=== PATIENT | female | born 1990 | race Caucasian/White ===

== ENCOUNTER → 2019-12-02 08:50 | Outpatient (CLI) | payer OTHER, SELFPAY ==
[2019-02-17 15:02] VITALS: BMI 26.9
[2019-12-02 10:33] LABS: Anion Gap 4 (5-15); BUN 6 mg/dL (7-18); BUN/Creat Ratio 8.3 RATIO (10-20); Calcium,Total 8.6 mg/dL (8.5-10.1); Chloride 108 mmol/L (98-107); Cholesterol 160 mg/dL (200); Creatinine, Serum 0.72 mg/dL (0.55-1.02); EST Glomerular Filtration Rate 102 mL/min (>60); Est Glom Filt Rate - Afr Amer 123 mL/min (>60); Glucose 86 mg/dL (74-106); High Density Lipoprotein 59 mg/dL; Potassium 3.9 mmol/L (3.5-5.1); Sodium Level 140 mmol/L (136-145); Thyroid Stim Hormone (TSH) 1.11 uIU/mL (0.358-3.74); Triglycerides 66 mg/dL; Very Low Density Lipoprotein 13 mg/dL (5-40)
== END ==
PROVIDERS: Family Medicine; PCP Family Medicine; Referring Provider Family Medicine; Visit Provider Family Medicine
DX: Z13.1 Encounter for screening for diabetes mellitus (principal); Z13.220 Encounter for screening for lipoid disorders; F41.9 Anxiety disorder, unspecified
CPT/HCPCS: 36415; 80048; 80061; 84443

== ENCOUNTER → 2020-01-18 | Outpatient (CLI) | payer OTHER, SELFPAY ==
[2019-02-17 15:02] VITALS: BMI 26.9
== END | disposition home or self-care (01) ==
PROVIDERS: PCP Family Medicine; Referring Provider Family Medicine; Visit Provider Family Medicine
DX: Z20.828 Contact with and (suspected) exposure to other viral communicable diseases (principal)
CPT/HCPCS: 87635; C9803; U0003

== ENCOUNTER → 2020-03-28 15:34 | Outpatient (CLI) | payer OTHER, SELFPAY ==
[2020-03-17 10:47] VITALS: BMI 27.3
== END ==
PROVIDERS: PCP Family Medicine; Referring Provider Nurse Practitioner Women's Health; Visit Provider Nurse Practitioner Women's Health
DX: N97.0 Female infertility associated with anovulation (principal)
CPT/HCPCS: 36415

== ENCOUNTER → 2020-04-15 16:28 | Outpatient (CLI) | payer OTHER, SELFPAY ==
[2020-03-17 10:47] VITALS: BMI 27.3
[2020-04-15 17:32] LABS: Progesterone Level 10.07 ng/mL (See Comment)
== END ==
PROVIDERS: PCP Family Medicine; Referring Provider Nurse Practitioner Women's Health; Visit Provider Nurse Practitioner Women's Health
DX: N97.0 Female infertility associated with anovulation (principal)
CPT/HCPCS: 36415; 84144

== ENCOUNTER → 2020-06-08 11:41 | Outpatient (CLI) | payer OTHER, SELFPAY ==
[2020-03-17 10:47] VITALS: BMI 27.3
--- NOTE | 2020-06-08 11:43 | RAD_ITS ---
STUDY: HYSTEROSALPINGOGRAM. REASON FOR EXAM: Female, 30 years old. Infertility FLUOROSCOPY TIME (if supplied): ( 35 seconds ) minutes/seconds. 3 images were obtained. TECHNIQUE: Hysterosalpingogram was performed by the aircraft engine installer. Imaging was provided. COMPARISON: None. FINDINGS: The uterus is unremarkable. There is patency of the left fallopian tube with free spill. RAD/Salpingogram IMPRESSION: Patency of the left fallopian tube with free spill. The right fallopian tube is not visualized. Electronically Signed: Sachin Chacon MD at 13:07 EST , Service support ,
--- NOTE | 2020-06-08 13:06 | PCM.OPRPT ---
Problem List (1) Infertility Status: Acute Report of Operation Date of Procedure: 06/08/20 Pre-Operative Diagnosis: Primary infertility Post-Operative Diagnosis: Same Surgery/Procedure Performed:: Hysterosalpingogram Description of Surgical Findings:: Spill noted from left fallopian tube. No spill on right. electronic engineering technician: None Type of Anesthesia:: None Description of Procedure: The patient was placed on the table in the lithotomy position. A sterile speculum was placed in the vagina until the cervix was adequately visualized. The cervix was cleansed with a Betadine solution. The HSG catheter was then passed through the cervix without difficulty and the balloon was inflated. Once the radiologist was present, dye was instilled through the HSG catheter and the above findings were noted. The procedure was deemed complete. All instruments removed from the vagina. - Complications None apparent - Admit VTE Documentation VTE Present on Admission: No VTE Mechan Device Prophylaxis: None Multi Select Codes - Urinary/Genital Urinary/Genital CPT Codes: 57301 HSG/SIS
== END ==
PROVIDERS: PCP Family Medicine; Referring Provider Obstetrics & Gynecology; Visit Provider Obstetrics & Gynecology
DX: N97.9 Female infertility, unspecified (principal)
CPT/HCPCS: 58340; 74740

== ENCOUNTER → 2020-08-09 17:18 | Outpatient (CLI) | payer OTHER, SELFPAY ==
[2020-07-06 13:52] VITALS: BMI 28.4
[2020-08-09 18:32] LABS: hCG Titer Quant., Serum 16464 mIU/mL (1-3)
== END ==
PROVIDERS: PCP Family Medicine; Referring Provider Obstetrics & Gynecology; Visit Provider Obstetrics & Gynecology
DX: N91.2 Amenorrhea, unspecified (principal)
CPT/HCPCS: 36415; 84702

== ENCOUNTER → 2020-08-11 15:10 | Outpatient (CLI) | payer OTHER, SELFPAY ==
[2020-07-06 13:52] VITALS: BMI 28.4
[2020-08-11 16:37] LABS: hCG Titer Quant., Serum 22702 mIU/mL (1-3)
== END ==
PROVIDERS: PCP Family Medicine; Referring Provider Obstetrics & Gynecology; Visit Provider Obstetrics & Gynecology
DX: N91.2 Amenorrhea, unspecified (principal)
CPT/HCPCS: 36415; 84702

== ENCOUNTER → 2020-08-12 07:59 | Outpatient (CLI) | payer OTHER, SELFPAY ==
[2020-07-06 13:52] VITALS: BMI 28.4
--- NOTE | 2020-08-12 08:01 | US_ITS ---
STUDY: FIRST TRIMESTER OBSTETRICAL ULTRASOUND REASON FOR EXAM: Female, 30 years old well being LMP: 06/29/2020. TECHNIQUE: Transvaginal TECHNICAL QUALITY: Adequate. PRIOR ULTRASOUND: None. FINDINGS: There is visualization of a single gestational sac in a normal intrauterine position. The mean sac diameter (MSD) measures 1.71 cm, indicating an estimated gestational age (EGA) of 6 weeks, 4 days. The gestational sac shape is within normal limits. There is a visualized yolk sac. The yolk sac measures 4.3 mm. The placenta is non-visualized. There is visualization of a live embryo. The crown-rump length (CRL) measures 3 mm, indicating an estimated gestational age (EGA) of 6 weeks, 0 days. There is demonstrated cardiac activity with a heart rate of 114 bpm. The estimated gestation age (EGA) by LMP is 6 weeks, 2 days. The estimated date of delivery (LEIDA) by LMP is 04/05/2021. The estimated gestation age (EGA) by US is 6 weeks, 2 days. The estimated date of delivery (LEIDA) by US is 04/05/2021. The uterus measures 8.7 cm x 6.4 cm x 4.8 cm. There is no demonstrated uterine fibroid. The cervix is closed. The right ovary measures 3.3 cm x 3.2 cm x 2 cm. There is a right ovarian cyst measuring 2.8 cm x 2.5 cm x 1.8 cm. There is no visualized right adnexal mass or complex lesion. The left ovary measures 1.8 cm x 2.7 cm x 2.3 cm. There is no left ovarian cyst. There is no visualized left adnexal mass or complex lesion. There is no fluid in the cul de sac. US/Transvaginal w/Preg US IMPRESSION: Single live uterine gestation with a mean gestational age of 6 weeks and 2 days. 2.8 cm x 2.5 cm x 1.8 cm right ovarian cyst. Electronically Signed: Sachin Chacon MD at 13:01 EDT , Service support ,
== END ==
PROVIDERS: PCP Family Medicine; Referring Provider Obstetrics & Gynecology; Visit Provider Obstetrics & Gynecology
DX: O36.80X0 Pregnancy with inconclusive fetal viability, not applicable or unspecified (principal); Z3A.00 Weeks of gestation of pregnancy not specified
CPT/HCPCS: 76817

== ENCOUNTER → 2020-09-12 15:49 | Outpatient (CLI) | payer OTHER, SELFPAY ==
[2020-09-12 14:47] VITALS: BMI 28.4
[2020-09-12 16:11] LABS: Absolute Lymphocyte Count 1.76 X10^3/uL (0.83-4.51); Basophil# 0.03 X10^3/uL; Basophil% 0.4 % (0-1); Eosinophil# 0.12 X10^3/uL; Eosinophils% 1.4 % (0-5); Hematocrit 36.4 % (37-47); Hemoglobin 12.3 g/dL (12.0-15.0); Lymphocyte # 1.76 X10^3/ul (0.83-4.51); Lymphocyte % 20.5 % (19-41); Mean Corp Hgb Conc 33.8 g/dL (32-36); Mean Corpuscular Hgb 30.1 pg (27.0-32.0); Mean Corpuscular Volume 89.2 fL (81-99); Mean Platelet Vol. 9.5 fl (6.2-12.0); Monocyte# 0.64 X10^3/uL; Monocyte% 7.5 % (0-10); NRBC Flagged by Analyzer 0 % (0-5); Neutrophil # 5.97 X10^3/uL (2.7-7.7); Neutrophil % 69.6 % (47-70); Platelet Count 266 K/mm3 (150-450); RBC Distribution Width CV 12.8 % (11.6-14.6); RBC Distribution Width SD 41.8 fl (35.1-43.9); Red Blood Count 4.08 M/mm3 (4.2-5.4); White Blood Count 8.6 K/mm3 (4.4-11.0)
[2020-09-12 16:53] LABS: NATERA MAILED SPECIMEN
[2020-09-12 18:16] LABS: Amphetamine Urine VISTA NEGATIVE (<1000 ng/mL); Barbiturate Urine VISTA NEGATIVE (< 200 ng/mL); Benzodiazepine Urine VISTA NEGATIVE (< 200 ng/mL); Cocaine Urine VISTA NEGATIVE (< 300 ng/mL); Ecstacy Urine VISTA NEGATIVE (< 500 ng/mL); Methadone Urine VISTA NEGATIVE (< 300 ng/mL); PCP Urine VISTA NEGATIVE (< 25 ng/mL); THC Urine VISTA NEGATIVE (< 50 ng/mL); Vista UDS pH Range 6
[2020-09-13 09:08] LABS: HIV - WCH Non-Reactive (Nonreactive); Hepatitis B Surface Antigen Non-Reactive (Nonreactive); Hepatitis C Antibody Non-Reactive (Nonreactive); Rubella IgG Reactive (Nonreactive); Syphilis Antibodies Non-reactive
[2020-09-15 03:07] LABS: Chlamydia By Nucleic Acid AMP Negative (Negative)
[2020-09-15 08:42] LABS: Gonococcus By Nucleic Acid AMP Negative (Negative)
== END ==
PROVIDERS: PCP Family Medicine; Referring Provider Obstetrics & Gynecology; Visit Provider Obstetrics & Gynecology
DX: Z34.81 Encounter for supervision of other normal pregnancy, first trimester (principal)
CPT/HCPCS: 36415; 80307; 85025; 86703; 86762; 86780; 86803; 86850; 86900; 86901; 87086; 87088; 87340; 87491; 87591

== ENCOUNTER → 2020-11-09 12:51 | Outpatient (CLI) | payer OTHER, SELFPAY ==
[2020-10-12 08:51] VITALS: BMI 28.4
[2020-11-09 13:18] VITALS: BP 110/65; PULSE 87; RESP 16; TEMP 36.3; O2SAT 98; BMI 29.5
[2020-11-09] MEDS: Dextrose 5%-Lactated Ringers 1,000 ML 999 ML IV (13:35)
[2020-11-09] MEDS: Ondansetron 4 MG/2 ML Vial IV (13:35)
[2020-11-09 14:47] VITALS: BP 109/63; PULSE 95; RESP 16; TEMP 36.6; O2SAT 100
[2020-11-09] MEDS: proMETHazine 25 MG/ML Syringe 12.5 MG IM (14:51)
== END ==
PROVIDERS: PCP Family Medicine; Referring Provider Nurse Practitioner Women's Health; Visit Provider Nurse Practitioner Women's Health
DX: E86.0 Dehydration (principal)
CPT/HCPCS: 96361; 96372; A4216; J2405

== ENCOUNTER 2020-11-13 13:18 | Emergency (ER) | payer OTHER, SELFPAY ==
[2020-11-11 14:31] VITALS: BMI 29.5
[2020-11-13 13:19] VITALS: BP 116/73; PULSE 96; RESP 16; TEMP 36.8; O2SAT 97; BMI 31.4
--- NOTE | 2020-11-13 13:34 | ED.VIS.FEGU ---
HPI HPI - Female History of Present Illness Chief Complaint: Vag Bld, Preg Informant: patient Pain Pain: Negative for Pelvic Pain Bleeding Issue: Positive for Vaginal bleeding; Negative for Passing clots and Passing tissue Onset: Weeks Context: Gradual Onset Timing: Intermittent Current Severity: Spotting Maximum Severity: Spotting Associated Symptoms Associated Symptoms: Negative for Dysuria, Frequency, Urgency, Hematuria and Missed Period Test: Positive Sexually: Positive for Active Control: No control P: 0 Ab: 0 Narrative Narrative: 30-year-old female G1, P0 Ab0 that is approximately 19 weeks . Due date is 04/05/2021. Patient is currently seeing Dr. Brewer as her DEMOLITIONIST. States she has had intermittent spotting throughout the . She has had an ultrasound showing a single live IUP and her blood type is O+. She is having no pain. No clots. And has not passed any tissue. She denies any urinary symptoms. Prior similar symptoms: Yes Recent Illness/Hospitalization: No PFSH PFSH no medical history Home Medications prenat.vits,michelle,[id number] 1 tab PO DAILY 08/30/20 [History Last Taken Unknown] Allergy/AdvReac Type Severity Reaction Status Date / Time No Known Allergies Allergy Verified 11/13/20 13:20 Family History Grandmother Diabetes Grandfather No problems noted. Aunt Diabetes Uncle Diabetes Father Hypercholesterolemia Surgical History [place] teeth extracted Social History adopted: No household members: spouse number of children: 0 current occupational status: employed current occupation: [employer] Coordinator of [employer] pets and animals: No Smoking Status: Never smoker alcohol intake: current alcohol intake frequency: holidays/special occasions only substance use type: does not use seatbelt use: always do you feel safe at home: Yes additional social history: Sadiq Minus at [employer] ROS ROS ED ROS Narrative Mild nausea early on the she has been doing well recently. Review of Systems ROS Unobtainable: Denies due to encephalopathy Constitutional Constitutional ED: Denies fever(s) Eyes Eyes: Denies change in vision ENT ENT ED: Denies ear pain or rhinorrhea Cardiovascular Cardiovascular: Denies chest pain Respiratory/Chest Respiratory/Chest: Denies cough or dyspnea Gastrointestinal Gastrointestinal: Reports nausea; Denies abdominal pain, constipation, diarrhea or vomiting Genitourinary Genitourinary ED: Denies dysuria Musculoskeletal Musculoskeletal: Denies myalgias Integumentary Denies rash Neurologic Neurologic: Denies headache(s) Psychiatric Psychiatric: Denies depression Endocrine Endocrinology: Denies polyuria Hematologic/Lymphatic Hematologic/Lymphatic: Denies easy bruising Allergic/Immunologic Allergic/Immunologic ED: Denies urticaria EXAM Physical Exam Narrative Exam Narrative: Well-appearing female no acute distress. Vital signs stable afebrile. HEENT, neck, heart, lung exam unremarkable. Abdomen soft nontender normal bowel sounds no peritoneal signs. Gravid uterus nontender. heart tones 144 per the nurse. Moving all 4 extremities. No edema. Neurologically awake alert no focal motor deficits. Const Vital Signs: 11/13/20 13:19 Temperature 98.3 F Temperature Source Temporal Pulse Rate 96 Respiratory Rate 16 Blood Pressure 116/73 Blood Pressure Mean 87 Pulse Ox 97 Oxygen Delivery Method Room Air Positive well nourished and well developed; Negative for obese, cachectic or contractures General Appearance ED: well developed; Negative for cachectic or contractures Nutritional Appearance: Negative for cachectic or obese HEENT Reports moist mucous membranes Negative for trauma or tenderness Eyes PERRL and EOMs intact bilaterally Neck no lymphadenopathy, supple and no JVD Thyroid: Negative for tender Chest Wall inspection of chest normal Resp normal respiratory effort and clear to auscultation bilaterally Cardio regular rate, regular rhythm, S1 normal heart sound, no murmurs and no JVD GI normal to inspection, nondistended, normoactive bowel sounds, soft to palpation, non-tender, non-distended and no masses GI Narrative: Gravid uterus, nontender consistent with dates. Auscultation: normoactive bowel sounds Palpation: Negative for tender, guarding or rigid Back/Spine no CVA tenderness Extremity normal to inspection and full ROM General Extremety ED: Negative for edema or tenderness General Extremity: Negative for edema Neuro oriented x3 Sensorium / Orientation: alert, oriented to person, oriented to place and oriented to time Motor Exam: strength 5/5 throughout Psych mental status grossly normal Skin no rashes or lesions noted MDM MDM MDM Narrative Medical decision making narrative: G1, P0 female 19 weeks . Vaginal spotting spotting off and on throughout the last several weeks. Prior single live IUP ultrasound. Blood type so positive. heart tones are 144 today. She will be discharged to home follow-up with her primary DEMOLITIONIST physician for threatened miscarriage. Discharge Plan Triage Chief Complaint: Vag Bld, Preg ED Provider: Tommy Mi Dx/Rx/DC Orders Clinical Impression: Vaginal bleeding in patient at less than 20 weeks gestation Instructions: ED Possible Miscarriage ... Prescriptions: No Action prenat.vits,michelle,[id number] Tablet 1 tab PO DAILY RF: 0 Primary Care Provider: Sadiq Brewer Referrals: Sadiq Brewer MD [Primary Care Provider] - As soon as possible Activity Restrictions/Additional Instructions: heart tones are fine. Follow-up with your DEMOLITIONIST tomorrow. Plenty of fluids and rest. No intercourse. No heavy lifting Disposition Disposition: Home, Self Care
== END 2020-11-13 14:02 | disposition home or self-care (01) ==
LOC: ED 14:00
PROVIDERS: Emergency Provider Emergency Medicine; PCP Family Medicine
DX: O20.9 Hemorrhage in early pregnancy, unspecified (principal); Z3A.19 19 weeks gestation of pregnancy
CPT/HCPCS: 99282

== ENCOUNTER → 2020-11-15 14:53 | Outpatient (CLI) | payer OTHER, SELFPAY ==
[2020-11-13 13:19] VITALS: BMI 31.4
[2020-11-15 14:39] VITALS: BMI 31.4
--- NOTE | 2020-11-15 14:56 | US_ITS ---
STUDY: SECOND AND THIRD TRIMESTER OBSTETRICAL ULTRASOUND - LIMITED REASON FOR EXAM: Female, 30 years old well being LMP: PRIOR ULTRASOUND: None. TECHNIQUE: Transabdominal and transvaginal TECHNICAL QUALITY: Adequate. FINDINGS: There is a single intrauterine fetus. The fetus is in a breech presentation. There is demonstrated cardiac activity with a heart rate of 143 bpm. There is a normal amniotic fluid volume. The largest amniotic fluid pocket measures 5.3 x 4.6 cm. The amniotic fluid index (NATALIYA) is 15.4 cm. The placenta is anterior and not low-lying There are Grade 0 placental changes. The cervix measures 3.2 cm in length. Age by LMP: 19 weeks, 6 days. LEIDA by LMP: 04/05/2021. age by prior US: 19 weeks, 6 days. LEIDA by prior US: 04/05/2021. IMPRESSION: Viable intrauterine gestation approximately 19-20 weeks gestational age with fetus currently in breech position. No significant abnormality Electronically Signed: Jimmy Bonilla MD at 16:25 EDT , Service support , STUDY: OBSTETRICAL ULTRASOUND REASON FOR EXAM: Female, 30 years old well being LMP: TECHNIQUE: Transvaginal TECHNICAL QUALITY: Adequate. PRIOR ULTRASOUND: None. FINDINGS: There is a single viable intrauterine gestation noted currently in breech position with heart rate of approximately 143 bpm. Placenta is anterior and not low-lying. Placenta grade was 0 There appears to be a very small retroplacental complex fluid collection possibly representing hematoma. Amniotic fluid index was 16.4 and the largest fluid pocket measures 5.3 x 4.6 cm age by prior ultrasound was 19 weeks 6 days with estimated date of delivery 04/05/2021. There is similar age utilizing menstrual dates US/OB Limited (No Biometrics) IMPRESSION: Viable intrauterine gestation approximately 19-20 weeks gestational age with fetus currently in breech position. . Findings suggestive of small retroplacental hematoma. Recommend clinical correlation and follow-up studies Electronically Signed: Jimmy Bonilla MD at 16:29 EDT , Service support ,
== END ==
PROVIDERS: PCP Family Medicine; Referring Provider Obstetrics & Gynecology; Visit Provider Obstetrics & Gynecology
DX: O20.9 Hemorrhage in early pregnancy, unspecified (principal)
CPT/HCPCS: 76815; 76817

== ENCOUNTER → 2020-12-09 12:34 | Outpatient (CLI) | payer OTHER, SELFPAY ==
[2020-11-13 13:19] VITALS: BMI 31.4
--- NOTE | 2020-12-09 12:35 | US_ITS ---
STUDY: SECOND AND THIRD TRIMESTER OBSTETRICAL ULTRASOUND - LIMITED REASON FOR EXAM: Female, 30 years old CERVICAL LENGTH ONLY LMP: PRIOR ULTRASOUND: 11/15/2020 TECHNIQUE: Transvaginal TECHNICAL QUALITY: Adequate. FINDINGS: There is a single intrauterine fetus. The fetus is in a breech presentation. The cervix measures 3.3 cm in length. US/Transvaginal w/Preg US IMPRESSION: Cervical length 3.3 cm. Electronically Signed: Alf Bear MD at 12:55 EDT Tel , Service support ,
== END ==
PROVIDERS: PCP Family Medicine; Referring Provider Obstetrics & Gynecology; Visit Provider Obstetrics & Gynecology
DX: O46.90 Antepartum hemorrhage, unspecified, unspecified trimester (principal); Z3A.00 Weeks of gestation of pregnancy not specified
CPT/HCPCS: 76817

== ENCOUNTER → 2020-12-23 12:06 | Outpatient (CLI) | payer OTHER, SELFPAY ==
--- NOTE | 2020-12-23 12:09 | US_ITS ---
STUDY: FIRST TRIMESTER OBSTETRICAL ULTRASOUND REASON FOR EXAM: Female, 30 years old CERVICAL LENGTH CHECK 24 W LMP: 06/29/2020. TECHNIQUE: Transvaginal TECHNICAL QUALITY: Adequate. PRIOR ULTRASOUND: None. FINDINGS: The cervical length measures 4.6 cm. heart rate measures 157 bpm. US/Transvaginal w/Preg US IMPRESSION: Cervical length measures 4.6 ounces. Electronically Signed: Sachin Chacon MD at 14:40 EDT , Service support ,
== END ==
PROVIDERS: PCP Family Medicine; Referring Provider Obstetrics & Gynecology; Visit Provider Obstetrics & Gynecology
DX: O46.90 Antepartum hemorrhage, unspecified, unspecified trimester (principal); Z3A.00 Weeks of gestation of pregnancy not specified
CPT/HCPCS: 76817

== ENCOUNTER → 2021-01-06 12:59 | Outpatient (CLI) | payer OTHER, SELFPAY ==
[2021-01-06 13:50] LABS: Absolute Neutrophil Count 6.4 X10^3/uL (2.0-7.7); Basophil# 0.02 X10^3/uL; Basophil% 0.2 % (0-1); Eosinophil# 0.11 X10^3/uL; Eosinophils% 1.3 % (0-5); Hematocrit 33.4 % (37-47); Hemoglobin 11.3 g/dL (12.0-15.0); Lymphocyte % 17.6 % (19-41); Mean Corp Hgb Conc 33.8 g/dL (32-36); Mean Corpuscular Hgb 30.6 pg (27.0-32.0); Mean Corpuscular Volume 90.5 fL (81-99); Mean Platelet Vol. 9.7 fl (6.2-12.0); Monocyte% 5.9 % (0-10); NRBC Flagged by Analyzer 0 % (0-5); Neutrophil # 6.36 X10^3/uL (2.7-7.7); Neutrophil % 74.6 % (47-70); Platelet Count 231 K/mm3 (150-450); RBC Distribution Width SD 42.8 fl (35.1-43.9); Red Blood Count 3.69 M/mm3 (4.2-5.4); White Blood Count 8.5 K/mm3 (4.4-11.0)
[2021-01-06 14:22] LABS: Glucose Challenge Gest 1H 50g 157 mg/dL (70-140)
== END ==
PROVIDERS: PCP Family Medicine; Referring Provider Obstetrics & Gynecology; Visit Provider Obstetrics & Gynecology
DX: Z34.01 Encounter for supervision of normal first pregnancy, first trimester (principal)
CPT/HCPCS: 36415; 82950; 85025

== ENCOUNTER → 2021-01-13 06:57 | Outpatient (CLI) | payer OTHER, SELFPAY ==
[2021-01-13 07:43] LABS: Glucose GTT-Gestation. Fasting 97 mg/dL (<105)
[2021-01-13 09:49] LABS: Glucose GTT-Gestational 1 Hr 185 mg/dL (<190)
[2021-01-13 10:42] LABS: Glucose GTT-Gestational 2 Hr 159 mg/dL (<165)
[2021-01-13 12:04] LABS: Glucose GTT-Gestational 3 Hr 81 L (<145)
== END ==
PROVIDERS: Referring Provider Obstetrics & Gynecology; Visit Provider Obstetrics & Gynecology
DX: Z13.1 Encounter for screening for diabetes mellitus (principal)
CPT/HCPCS: 36415; 82951; 82952

== ENCOUNTER 2021-01-24 15:44 | Outpatient (RCR) | payer OTHER, SELFPAY | END 2021-02-05 23:59 | LOC: DC 15:44 | PROVIDERS: Visit Provider Obstetrics & Gynecology | DX: O24.419 Gestational diabetes mellitus in pregnancy, unspecified control (principal); Z3A.00 Weeks of gestation of pregnancy not specified | CPT/HCPCS: 97802 ==

== ENCOUNTER 2021-02-09 15:05 | Outpatient (RCR) | payer OTHER, SELFPAY | END 2021-03-07 23:59 | LOC: DC 15:05 | PROVIDERS: Visit Provider Obstetrics & Gynecology | DX: O24.419 Gestational diabetes mellitus in pregnancy, unspecified control (principal); Z3A.00 Weeks of gestation of pregnancy not specified ==

== ENCOUNTER → 2021-03-10 13:19 | Outpatient (CLI) | payer OTHER, SELFPAY ==
--- NOTE | 2021-03-10 13:19 | US_ITS ---
STUDY: SECOND AND THIRD TRIMESTER OBSTETRICAL ULTRASOUND - LIMITED REASON FOR EXAM: Female, 31 years old 36 week growth LMP: 06/29/2020. PRIOR ULTRASOUND: Comparison is made with prior study dated 12/23/2020. TECHNIQUE: Transabdominal TECHNICAL QUALITY: Adequate. FINDINGS: There is a single intrauterine fetus. The fetus is in a cephalic presentation. There is demonstrated cardiac activity with a heart rate of 160 bpm. There is a normal amniotic fluid volume. The largest amniotic fluid pocket measures 7.1 cm. The amniotic fluid index (NATALIYA) is 17.8 cm. The placenta is fundal and anterior in location. There are Grade 1 placental changes. The cervix measures 3.8 cm in length. BIOMETRY: BPD: 9.14 cm: 37 weeks, 0 days HC: 32.75 cm: 37 weeks, 1 days AC: 31.4 cm: 35 weeks, 2 days FL: 6.8 cm: 35 weeks, 0 days Age by LMP: 36 weeks, 2 days. LEIDA by LMP: 04/05/2021. age by prior US: 36 weeks, 2 days. LEIDA by prior US: 04/05/2021. age by current US: 36 weeks, 1 days. LEIDA by current US: 04/06/2021. Estimated weight: 2744 grams, +/- 412 grams, 37 percentile. US/OB Limited With Biometrics IMPRESSION: Single live intrauterine gestation with a mean gestational age of 36 weeks and 1 day. The measurements obtained today fall within the normal expected range. Electronically Signed: Sachin Chacon MD at 12:45 EST , Service support ,
== END ==
PROVIDERS: Referring Provider Obstetrics & Gynecology; Visit Provider Obstetrics & Gynecology
DX: O46.90 Antepartum hemorrhage, unspecified, unspecified trimester (principal); O24.410 Gestational diabetes mellitus in pregnancy, diet controlled; Z3A.36 36 weeks gestation of pregnancy
CPT/HCPCS: 76816; 87081

== ENCOUNTER 2021-03-21 02:10 | Inpatient (IN) | payer OTHER, SELFPAY ==
[2021-03-21] VITALS (53 sets, daily range): BP systolic 90–139; BP diastolic 51–82; PULSE 61–93; RESP 15–18; TEMP 36–36.9; O2SAT 92–100; BMI 31.9
[2021-03-21 02:09] LABS: ROM Internal Control Test YES-OK TO RESULT pt. (Internal QC)
[2021-03-21 02:10] LABS: ROM Patient Test POSITIVE (Negative)
[2021-03-21] MEDS: Lactated Ringers 500 ML 999 ML IV ×2 (02:30→03:46)
[2021-03-21 02:36] LABS: Bedside Glucose 92 mg/dL (70-110)
[2021-03-21 02:38] LABS: Absolute Lymphocyte Count 1.38 X10^3/uL (0.83-4.51); Absolute Neutrophil Count 11.8 X10^3/uL (2.0-7.7); Basophil# 0.02 X10^3/uL; Basophil% 0.1 % (0-1); Eosinophil# 0.01 X10^3/uL; Eosinophils% 0.1 % (0-5); Hematocrit 36.8 % (37-47); Hemoglobin 12.6 g/dL (12.0-15.0); Lymphocyte # 1.38 X10^3/ul (0.83-4.51); Lymphocyte % 9.9 % (19-41); Mean Corp Hgb Conc 34.2 g/dL (32-36); Mean Corpuscular Hgb 30.7 pg (27.0-32.0); Mean Corpuscular Volume 89.5 fL (81-99); Mean Platelet Vol. 10.4 fl (6.2-12.0); Monocyte# 0.68 X10^3/uL; Monocyte% 4.9 % (0-10); NRBC Flagged by Analyzer 0 % (0-5); Neutrophil # 11.81 X10^3/uL (2.7-7.7); Neutrophil % 84.5 % (47-70); Platelet Count 230 K/mm3 (150-450); RBC Distribution Width CV 13.3 % (11.6-14.6); RBC Distribution Width SD 43.8 fl (35.1-43.9); Red Blood Count 4.11 M/mm3 (4.2-5.4)
[2021-03-21] MEDS: Lactated Ringers 1,000 ML 200 ML IV (03:01)
[2021-03-21] MEDS: fentaNYL-bupivacaine (epidural) 100 ML BAG EPIDURAL (03:37)
--- NOTE | 2021-03-21 05:09 | HP.PCM.OB_ITS ---
HPI - General General Date of Admission: 03/21/21 HPI Narrative ROSA ELENA BELTRÁN, is a 31 F who presents in active labor 4-5 cm ruptured clear fluid. She has had a complicated by gestational diabetes managed with Metformin. Maternal Data Information LEIDA Calculator Estimated Delivery Date Method Current WG Current Estimate 04/05/21 LMP (Certain) 37w 6d PFSH PFS Medical History (Updated 03/21/21 @ 05:[address] Brandi Ann MD) Anxiety Gestational diabetes Infertility Placental abnormality Home Medications prenat.vits,michelle,xzb-snez-cerhf 1 tab PO DAILY 08/30/20 [History Last Taken Unknown] blood-glucose meter #1 ea 01/13/21 [Rx Last Taken Unknown] ferrous sulfate 325 mg (65 mg iron) tablet 325 mg PO DAILY 01/17/21 [History Last Taken Unknown] blood sugar diagnostic #50 ea 01/25/21 [Rx Last Taken Unknown] lancets #100 ea 01/27/21 [Rx Last Taken Unknown] metformin 500 mg PO BID 03/21/21 [History Last Taken 03/20/21 17:45] Allergy/AdvReac Type Severity Reaction Status Date / Time No Known Allergies Allergy Verified 03/21/21 01:47 Family History Grandmother Diabetes Grandfather No problems noted. Aunt Diabetes Uncle Diabetes Father Hypercholesterolemia Surgical History [place] teeth extracted Social History adopted: No household members: spouse number of children: 0 current occupational status: employed current occupation: [employer] Coordinator of [employer] pets and animals: No Smoking Status: Former smoker alcohol intake: current alcohol intake frequency: holidays/special occasions only substance use type: does not use seatbelt use: always do you feel safe at home: Yes additional social history: Marcio Nearlyweds at [employer] History 1 Elective abortions Hx Para 0 Spontaneous abortions Hx # Term Pregnancies Ectopic pregnancies Hx # Pregnancies Multiple births # of living children Visit Details Expected Delivery Route/Plan plan IOL by 39 Labor Preferences- CB/BF classes: yes labor support person: marcio labor intervention preferences: [] pain management options preferred: epidural cut cord/dad catch: [] : [] PP control planned: [] discussed possible routes of delivery and associated risks: discussed possible delivery modalities and possible indications for each including R/B/A of , VAVD, and CS. questions answered. special requests: [] Plans covid status: positive in , vaccinated now flu vaccine: given tdap vaccine: given rhogam: na LARC form signed: declined movement and labor precautions reviewed. Problem list reviewed and updated with the most current plan of care details and appropriate orders placed. Relevant counseling for the gestational age provided. Continue routine care and follow up unless otherwise noted in visit notes/problem list details OB Flowsheet Initial Weight: 180 lb Date -?-?-?-?-?-?-?-?-?-?-?-?- EGA Weight BP Urine Prot -?-?-?-?-?-?-?-?-?-?-?-?- Glucose FHR FuHt Pres Dilation -?-?-?-?-?-?-?-?-?-?-?-?- Effaced St Visit Note 09/12/20 -?-?-?-?-?-?-?-?-?-?-?-?- 10w 5d 182 lb (+2 lb) 120/80 -?-?-?-?-?-?-?-?-?-?-?-?- 158 -?-?-?-?-?-?-?-?-?-?-?-?- GP - CRL consist ent with LMP 10/12/20 -?-?-?-?-?-?-?-?-?-?-?-?- 15w 0d 184 lb 4 oz (+4 lb 4 oz) 104/70 Negative -?-?-?-?-?-?-?-?-?-?-?-?- Negative 144 -?-?-?-?-?-?-?-?-?-?-?-?- GP - no cramping . Had 2 episodes of spotting but no bleeding currently. Eda uriel scan ordered. 11/11/20 -?-?-?-?-?-?-?-?-?-?-?-?- 19w 2d 190 lb (+10 lb) 100/80 Negative -?-?-?-?-?-?-?-?-?-?-?-?- Negative 140 -?-?-?-?-?-?-?-?-?-?-?-?- SM- no vb lof cr amping SM- still has occasional epi sodes of spotting, has anatomy us thruday, plan repeat CL 2 weeks after that 11/15/20 -?-?-?-?-?-?-?-?-?-?-?-?- 19w 6d -?-?-?-?-?-?-?-?-?-?-?-?- 147 0 -?-?-?-?-?-?-?-?-?-?-?-?- -work in for juliano maher. Cervix closed, everted and friable. Reassured. US later today 11/15/20 -?-?-?-?-?-?-?-?-?-?-?-?- 19w 6d 189 lb (+9 lb) 118/70 Negative -?-?-?-?-?-?-?-?-?-?-?-?- Negative -?-?-?-?-?-?-?-?-?-?-?-?- 12/09/20 -?-?-?-?-?-?-?-?-?-?-?-?- 23w 2d 192 lb 4 oz (+12 lb 4 oz) 102/74 Negative -?-?-?-?-?-?-?-?-?-?-?-?- Negative 145 23 -?-?-?-?-?-?-?-?-?-?-?-?- GP - no LOF, VB, DFM, ctx. FU CL done today - awaiting read but images reviewed and are normal 01/06/21 -?-?-?-?-?-?-?-?-?-?-?-?- 27w 2d 200 lb (+20 lb) Negative -?-?-?-?-?-?-?-?-?-?-?-?- Negative 140 27 -?-?-?-?-?-?-?-?-?-?-?-?- GP - no LOF, VB, DFM, ctx. Denies complaints. GCT and CBC done today- GCT pending 01/27/21 -?-?-?-?-?-?-?-?-?-?-?-?- 30w 2d 198 lb (+18 lb) 112/76 Negative -?-?-?-?-?-?-?-?-?-?-?-?- Negative 140 30 -?-?-?-?-?-?-?-?-?-?-?-?- SM- no vb lof go od fm no reuglar ctx discussed diabetes 02/10/21 -?-?-?-?-?-?-?-?-?-?-?-?- 32w 2d 201 lb (+21 lb) 116/80 -?-?-?-?-?-?-?-?-?-?-?-?- 140 32 -?-?-?-?-?-?-?-?-?-?-?-?- Sm- no vb lof go od fm no eruglar ctx BS controlled 02/24/21 -?-?-?-?-?-?-?-?-?-?-?-?- 34w 2d 201 lb 6 oz (+21 lb 6 oz) 112/72 Negative -?-?-?-?-?-?-?-?-?-?-?-?- Negative 145 34 Cephalic -?-?-?-?-?-?-?-?-?-?-?-?- SM- no vb lof go od fm no regular ctx 03/10/21 -?-?-?-?-?-?-?-?-?-?-?-?- 36w 2d 204 lb 6 oz (+24 lb 6 oz) 112/70 Negative -?-?-?-?-?-?-?-?-?-?-?-?- Negative 140 36 Cephalic 1 -?-?-?-?-?-?-?-?-?-?-?-?- SM- discussed st arted on metformin, will start extra testing 03/14/21 -?-?-?-?-?-?-?-?-?-?-?-?- 36w 6d Negative -?-?-?-?-?-?-?-?-?-?-?-?- 1000 g/dL 140 -?-?-?-?-?-?-?-?-?-?-?-?- MH NST only reac tive 03/17/21 -?-?-?-?-?-?-?-?-?-?-?-?- 37w 2d 201 lb (+21 lb) -?-?-?-?-?-?-?-?-?-?-?-?- 140 Cephalic 3 -?-?-?-?-?-?-?-?-?-?-?-?- 70 -2 SM- no vb lof good fm irregular ctx discussed IOL 39 pit 03/21/21 -?-?-?-?-?-?-?-?-?-?-?-?- 37w 6d 198 lb (+18 lb) 122/78 139/76 128/74 129/79 129/82 108/59 100/51 90/56 97/53 105/59 111/59 109/71 -?-?-?-?-?-?-?-?-?-?-?-?- -?-?-?-?-?-?-?-?-?-?-?-?- 03/21/21 -?-?-?-?-?-?-?-?-?-?-?-?- 37w 6d -?-?-?-?-?-?-?-?-?-?-?-?- -?-?-?-?-?-?-?-?-?-?-?-?- NST FHR Rate Baby A Baseline: 140 Variability:: Moderate Accelerations:: 15 x 15 Decelerations:: None NST Reactive:: Yes FHR Category:: Category I Uterine Activity:: q3-5 ROS Constitutional Constitutional: Reports systems reviewed and no addt'l complaints, except as documented ENT HEENT: Reports systems reviewed and no addt'l complaints, except as documented Cardiovascular Cardiovascular: Reports systems reviewed and no addt'l complaints, except as documented Respiratory/Chest Respiratory/Chest: Reports systems reviewed and no addt'l complaints, except as documented Gastrointestinal Gastrointestinal: Reports systems reviewed and no addt'l complaints, except as documented and nausea; Denies abdominal pain Genitourinary Genitourinary: Reports systems reviewed and no addt'l complaints, except as documented, contractions Details: present and frequency (regular ) and movement Details: present Musculoskeletal Musculoskeletal: Reports systems reviewed and no addt'l complaints, except as documented Integumentary Integumentary: Reports as per HPI Neurologic Neurologic: Reports systems reviewed and no addt'l complaints, except as documented Endocrine Endocrinology: Reports systems reviewed and no addt'l complaints, except as documented Vital Signs Vital Signs Vital Signs: 03/21/21 01:22 03/21/21 01:25 03/21/21 01:26 Temperature 96.8 F L Temperature Source Temporal Pulse Rate 71 Blood Pressure 122/78 H BP Systolic 122 BP Diastolic 78 Pulse Ox 98 03/21/21 02:28 03/21/21 03:12 03/21/21 03:17 Temperature Temperature Source Pulse Rate 80 70 76 Blood Pressure BP Systolic BP Diastolic Pulse Ox 99 100 99 03/21/21 03:19 03/21/21 03:22 03/21/21 03:24 Temperature Temperature Source Pulse Rate 71 78 72 Blood Pressure 139/76 H 128/74 H BP Systolic 139 128 BP Diastolic 76 74 Pulse Ox 100 03/21/21 03:27 03/21/21 03:28 03/21/21 03:32 Temperature Temperature Source Pulse Rate 77 73 82 Blood Pressure 129/79 H BP Systolic 129 BP Diastolic 79 Pulse Ox 100 99 03/21/21 03:34 03/21/21 03:37 03/21/21 03:39 Temperature Temperature Source Pulse Rate 77 71 69 Blood Pressure 129/82 H 108/59 L BP Systolic 129 108 BP Diastolic 82 59 Pulse Ox 99 03/21/21 03:40 03/21/21 03:42 03/21/21 03:44 Temperature 97.7 F L Temperature Source Pulse Rate 76 71 Blood Pressure 100/51 L BP Systolic 100 BP Diastolic 51 Pulse Ox 100 03/21/21 03:47 03/21/21 03:48 03/21/21 03:52 Temperature Temperature Source Pulse Rate 74 75 72 Blood Pressure 90/56 L BP Systolic 90 BP Diastolic 56 Pulse Ox 100 100 03/21/21 03:54 03/21/21 03:57 03/21/21 03:59 Temperature Temperature Source Pulse Rate 71 77 68 Blood Pressure 97/53 L 105/59 L BP Systolic 97 105 BP Diastolic 53 59 Pulse Ox 100 03/21/21 04:02 03/21/21 04:04 03/21/21 04:08 Temperature Temperature Source Pulse Rate 68 67 71 Blood Pressure 111/59 L BP Systolic 111 BP Diastolic 59 Pulse Ox 100 92 03/21/21 04:38 03/21/21 04:42 03/21/21 05:03 Temperature 97.5 F L Temperature Source Pulse Rate 71 77 68 Blood Pressure 109/71 BP Systolic 109 BP Diastolic 71 Pulse Ox 97 98 Weight Weight: 198 lb Body Mass Index (BMI) 31.9 Physical Exam Const alert, oriented x3 and healthy appearing Constitutional Narrative: uncomfortable with contractions HEENT normocephalic and moist oral mucous membranes Head and Scalp: atraumatic Neck full ROM, no lymphadenopathy, supple and thyroid normal General: trachea midline Thyroid: thyroid normal Lymph Lymphatic: no lymphadenopathy noted Chest inspection of chest normal Resp normal respiratory effort Cardio regular rate GI normal to inspection, nondistended, normoactive bowel sounds, soft to palpation and non-tender Inspection: gravid external exam normal Bimanual Exam - Vag & Uterus: uterus non-tender Manual OB Exam: estimated gestational size appropriate, presentation cephalic, dilated, effaced and station Extremity normal to inspection General Extremity: Negative for edema Skin no rashes or lesions noted Neuro deep tendon reflexes 2+ bilaterally Motor Exam: strength 5/5 throughout and clonus absent Psych mental status grossly normal Labs Labs Labs: Blood Type O POSITIVE Antibody Screen NEGATIVE Hct 36.8 % (37-47) L Hgb 12.6 g/dL (12.0-15.0) Obstetrics US Syphilis Total Ab Non-reactive Rubella IgG Antibody Reactive (Nonreactive) Hep Bs Antigen Non-Reactive (Nonreactive) Neisseria gonorrhoeae DNA (NIK) Negative (Negative) HIV 1&2 Antibody Non-Reactive (Nonreactive) Glucose 1 Hr 50 gm 157 mg/dL (70-140) H Miscellaneous Test Assessment & Plan (1) Anxiety: COMMENT: no meds (2) : QUALIFIERS: Weeks of gestation: 37 weeks Qualified Code(s): Z3A.37 - 37 weeks gestation of COMMENT: low risk NIPT boy. ntd carrier screening declined. nl anatomy; GBS NEG (3) Supervision of normal first : QUALIFIERS: Trimester: third trimester Qualified Code(s): Z34.03 - Encounter for supervision of normal first , third trimester COMMENT: PRR LEIDA 04/05/21 boy (name secret)Spouse Marcio (4) Gestational diabetes: QUALIFIERS: Gestational diabetes mellitus control: diet-controlled Trimester: third trimester Qualified Code(s): O24.410 - Gestational diabetes mellitus in , diet controlled COMMENT: nutrition and endocrinology referral sent. metformin controlled, plan 2x weekly NSTs. deliver at 39 (5) Active labor at term: COMMENT: admit exp management epi, pitocin PRN
[2021-03-21 06:01] LABS: Bedside Glucose 102 mg/dL (70-110)
[2021-03-21 06:01] LABS: Bedside Glucose 98 mg/dL (70-110)
[2021-03-21 07:00] LABS: Bedside Glucose 96 mg/dL (70-110)
[2021-03-21 07:26] LABS: Bedside Glucose 88 mg/dL (70-110)
--- NOTE | 2021-03-21 07:43 | EX.PCM.OBRPT ---
Assessment & Plan (1) Active labor at term: COMMENT: admit exp management epi, pitocin PRN (2) Anxiety: COMMENT: no meds (3) : QUALIFIERS: Weeks of gestation: 37 weeks Qualified Code(s): Z3A.37 - 37 weeks gestation of COMMENT: low risk NIPT boy. ntd carrier screening declined. nl anatomy; GBS NEG (4) Supervision of normal first : QUALIFIERS: Trimester: third trimester Qualified Code(s): Z34.03 - Encounter for supervision of normal first , third trimester COMMENT: PRR LEIDA 04/05/21 boy (name secret)Spouse Sadiq (5) Gestational diabetes: QUALIFIERS: Gestational diabetes mellitus control: diet-controlled Trimester: third trimester Qualified Code(s): O24.410 - Gestational diabetes mellitus in , diet controlled COMMENT: nutrition and endocrinology referral sent. metformin controlled, plan 2x weekly NSTs. deliver at 39 (6) Vaginal delivery: COMMENT: SM IAL boy GDMA2 Maternal Data Information LEIDA Calculator Estimated Delivery Date Method Current WG Current Estimate 04/05/21 LMP (Certain) 37w 6d Vaginal Delivery Operative Information Pre-Operative Diagnosis: IAL Post-Operative Diagnosis: same Surgery / Procedure Performed: Spontaneous Vaginal Delivery Type of Anesthesia: Epidural Special Medications: none Estimated Blood Loss: 300 Fluids Replaced: crystalloid Findings Description of Procedure: Patient began pushing and delivered the head in the [ALEC] presentation. The head was delivered atraumatically [and a loose nuchal cord ?1 was identified and the infant delivered through without complication]. The anterior and posterior shoulders delivered without complication followed by the rest of the infant and the infant was placed on the maternal abdomen. Delayed cord clamping was employed for approximately 60 seconds. Cord was clamped and cut and gentle traction was applied to the cord and the placenta delivered spontaneously immediately following it was noted to be intact with three-vessel cord. The perineum and vagina were inspected and noted to have a first-degree perineal laceration repaired with the usual fashion 3-0 Vicryl repeat. EBL was 300 cc. Patient and tolerated delivery well. Presentation: ALEC Amniotic Membrane Rupture Type: Spontaneous Amniotic Fluid Description: Clear Placental Delivery Description: Spontaneous Placenta Disposition: [facility] Cord Vessel Description: 3 Vessels Cord Entanglement: None A Gender: Male Delayed Cord Clamping: Yes Post Vaginal Delivery Medications Given After Delivery: IV Pitocin Episiotomy Description: None Laceration: Perineal Extension/lac and 1st degree Complication Complications: None Procedures Urinary/Genital [id number]: [id number] Vaginal Delivery [facility]
--- NOTE | 2021-03-21 07:44 | PCM.DC ---
Discharge Instructions Diet Discharge Diet: No restrictions Activity Discharge Activity: Return to Normal Activity, May Not Drive (while taking narcotic pain medications.) and May Shower May resume sexual activity in: 4-6 weeks Dressing / Incision Call your doctor if your incision/area has: Continuous Slow Oozing, Sudden Increased Bleeding, Increased Pain/ Swelling, Increased Redness and Foul Smelling Discharge Follow Up Care Please Follow Up With: Brandi Ann MD When: Call [phone] to make an appointment with your doctor in 6 weeks. If you had elevated blood pressure or 4th degree laceration, you will need to be seen in 2 weeks. Test Results: Test results from this visit will be discussed in further detail at your follow-up appointment, if applicable. Discharge Plan Admission Admit Date/Time: 03/21/21 02:10 Primary Reason for Your Visit: delivery Attending Provider: Brandi Ann Primary Care Provider: Adry Acosta Primary Discharge Orders/Prescriptions Prescriptions: No Action prenat.vits,michelle,jko-sbbk-mfaln Tablet 1 tab PO DAILY RF: 0 ferrous sulfate [Feosol] 325 mg (65 mg iron) tablet 325 mg PO DAILY RF: 0 metformin 500 mg tablet 500 mg PO BID RF: 0 (DME) blood-glucose meter Misc See Rx Instructions .ROUTE .MEDSUPPLY Qty: 1 RF: 0 (DME) Blood Glucose Test Strip See Rx Instructions .ROUTE .MEDSUPPLY Qty: 50 RF: 9 (DME) lancets [Accu-Chek Softclix Lancets] Misc See Rx Instructions .ROUTE .MEDSUPPLY Qty: 100 RF: 6 Referrals / Follow Up: Care Physician,No Primary [Primary Care Provider] - Disposition Disposition (needs filled in before D/C Order can be placed): Home, Self Care
[2021-03-21] MEDS: Oxytocin 30 units/NS 500 ml 30 UNITS/500 ML IV.SOLN 334 UNITS IV (08:07)
[2021-03-21 09:16] LABS: Bedside Glucose 87 mg/dL (70-110)
[2021-03-21] MEDS: Acetaminophen 500 MG Tablet 1000 MG PO (13:46)
[2021-03-21] MEDS: Naproxen 500 MG Tablet PO (16:36)
[2021-03-22] VITALS (7 sets, daily range): BP systolic 108–112; BP diastolic 56–69; PULSE 60–80; RESP 16–18; TEMP 35.5–37
[2021-03-22 05:45] LABS: Bedside Glucose 80 mg/dL (70-110)
[2021-03-22] MEDS: Naproxen 500 MG Tablet PO (08:05)
--- NOTE | 2021-03-22 08:13 | PCM.PN.OB ---
Subjective Subjective Patient doing well without complaints. Tolerating PO. Ambulating and voiding without difficulty. Feeding well. Denies chest pain, shortness of breath, calf pain/swelling, fevers, chills, lightheadedness. Objective Data Objective Data Vital Signs: Vital Signs Temp Pulse Resp BP Pulse Ox 98.1 F 64 16 111/69 99 03/22/21 07:58 03/22/21 07:58 03/22/21 07:58 03/22/21 07:58 03/21/21 06:20 Oxygen Delivery Method Room Air Weight: 198 lb Body Mass Index (BMI) 31.9 Intake & Output: Intake and Output for Last 24 Hours 03/20/21 03/21/21 03/22/21 23:59 23:59 23:59 Intake Total 2416.67 / 2416.67 Output Total 2150 / 2150 Balance 266.67 / 266.67 Lab / Micro Data Result Diagrams: 03/21/21 02:30 Labs: Laboratory Results - last 24 hr 03/21/21 09:08: POC Glucose 87 03/22/21 05:38: POC Glucose 80 Micro: Microbiology 03/21/21 02:30 Nasal Secretion SARS-CoV-2 Antigen (Rapid) - Final Physical Exam Const alert and oriented x3 HEENT normocephalic Eyes PERRL Neck full ROM Resp normal respiratory effort GI soft to palpation GI Narrative: FF below U Assessment & Plan (1) Vaginal delivery: COMMENT: SM IAL boy GDMA2 (2) Anxiety: COMMENT: no meds (3) Gestational diabetes: QUALIFIERS: Gestational diabetes mellitus control: diet-controlled Trimester: third trimester Qualified Code(s): O24.410 - Gestational diabetes mellitus in , diet controlled COMMENT: nutrition and endocrinology referral sent. metformin controlled, plan 2x weekly NSTs. deliver at 39 PLAN: s/p PPD # 1 1. routine post delivery care 2. breast feeding- support given 3. rh positive 4. rubella immune 5. glucose wnl, call Dr Fontanez for follow up 6. mood stable 7. home today
== END 2021-03-22 15:00 | disposition home or self-care (01) | DRG 807 ==
LOC: WPOUT 02:33 → WP 02:33
PROVIDERS: Admitting Provider Obstetrics & Gynecology; Visit Provider Obstetrics & Gynecology
DX: O24.425 Gestational diabetes mellitus in childbirth, controlled by oral hypoglycemic drugs (principal); Z37.0 Single live birth; O69.81X0 Labor and delivery complicated by cord around neck, without compression, not applicable or unspecified; O42.92 Full-term premature rupture of membranes, unspecified as to length of time between rupture and onset of labor; O70.0 First degree perineal laceration during delivery; Z3A.37 37 weeks gestation of pregnancy; Z87.891 Personal history of nicotine dependence; Z86.16 Personal history of COVID-19
CPT/HCPCS: 59025; 59050; 82962; 84112; 85025; 86850; 86900; 86901; 87426; 99218; J7120; G0378

== ENCOUNTER 2021-05-02 13:28 | Outpatient (CLI) | payer OTHER, SELFPAY ==
[2021-05-09 16:51] LABS: HPV APTIMA, High Risk Negative (Negative)
== END 2021-05-02 23:59 | disposition home or self-care (01) ==
LOC: LABSPEC 13:31
PROVIDERS: Referring Provider Obstetrics & Gynecology; Visit Provider Obstetrics & Gynecology
DX: Z12.4 Encounter for screening for malignant neoplasm of cervix (principal)
CPT/HCPCS: 87624; 88175; G0145

== ENCOUNTER 2021-05-19 07:45 | Outpatient (CLI) | payer OTHER, SELFPAY ==
[2021-05-19 11:17] LABS: Glucose 2 Hour Postprandial 65 mg/dL (<140)
== END 2021-05-19 23:59 | disposition home or self-care (01) ==
LOC: LAB 07:48
PROVIDERS: Referring Provider Obstetrics & Gynecology; Visit Provider Obstetrics & Gynecology
DX: O24.410 Gestational diabetes mellitus in pregnancy, diet controlled (principal)
CPT/HCPCS: 36415; 82950